=== PATIENT | male | born 1970 | race Caucasian/White ===

== ENCOUNTER 2021-10-28 12:06 | Emergency (ER) | payer SELFPAY ==
[~2021-10-28] VITALS: Ht 182.9 cm; Wt 94.3 kg
--- NOTE | 2021-10-28 12:15 | NUR ---
WALK IN C/O L AND R SIDED NUMBNESS, UNABLE TO TEXT, VISION CHANGES DURING PRESENTATION AT WORK.
--- NOTE | 2021-10-28 12:18 | NUR ---
SEEN BY DR BELTRAN
--- NOTE | 2021-10-28 12:21 | NUR ---
TAKEN TO CT
--- NOTE | 2021-10-28 12:22 | NUR ---
IV LINE IS ESTABLISHED, BLOOD SPECIMEN COLLECTED AND SENT TO THE LAB. THE LINE IS SALINE LOCKED.
[2021-10-28] MEDS ORDERED: CT SWABBABLE VALVE TRANS SET 1 EA INFUS.SET MC ONE (12:26)
[2021-10-28] MEDS ORDERED: IOHEXOL-350 100 ML VIAL IV ONE (12:26)
[2021-10-28] MEDS ORDERED: IV NS 0.9% 250 ML IV ONE (12:26)
[2021-10-28 12:28] LABS: BASOPHILS % (AUTO) 0.2 % (0.0-2.0); EOSINOPHILS % (AUTO) 4.7 % (0.0-6.0); HEMATOCRIT 44 % (39-51); HEMOGLOBIN 15.6 g/dL (13.5-17.5); LYMPHOCYTES # (AUTO) 1.6 K/uL (0.8-4.8); LYMPHOCYTES % (AUTO) 21.2 % (20.0-44.0); MEAN CORPUSCULAR HGB CONC 35 g/dl (31.0-36.0); MEAN CORPUSCULAR VOLUME 85 fL (80-96); MONOCYTES # (AUTO) 0.3 K/uL (0.1-1.30); MONOCYTES % (AUTO) 4.1 % (2.0-12.0); NEUTROPHILS # (AUTO) 5.2 K/uL (1.8-8.9); NEUTROPHILS % (AUTO) 69.8 % (43.0-81.0); PLATELET COUNT (AUTO) 243 K/uL (150-450); RED BLOOD CELL COUNT(AUTO) 5.21 MIL/uL (4.5-6.0); WHITE BLOOD COUNT (AUTO) 7.4 K/uL (4.3-11.0)
[2021-10-28] MEDS ORDERED: IV NS 0.9% 1,000 ML BAG IV ONE (12:30)
--- NOTE | 2021-10-28 12:31 | NUR ---
DR. JONES SPEAKING TO DR. BELTRAN.
--- NOTE | 2021-10-28 12:35 | NUR ---
PT RETURN FROM CT 1234.
--- NOTE | 2021-10-28 12:37 | NUR ---
TELE NEUROLOGIST SPEAKING TO THE PATIENT.
[2021-10-28 12:42] LABS: CALCIUM, SERUM 8.9 mg/dL (8.5-10.1); CARBON DIOXIDE 25 mmol/L (21-32); CHLORIDE 100 mmol/L (98-107); CREATININE 0.9 mg/dL (0.6-1.3); GLUCOSE 305 mg/dL (74-106); SODIUM SERUM 136 mmol/L (136-145); UREA NITROGEN, BLOOD 12 mg/dL (7-18)
--- NOTE | 2021-10-28 13:31 | NUR ---
PT AMBULATED TO BATHROOM, STEADY GAIT NOTED
--- NOTE | 2021-10-28 13:35 | NUR ---
URINE SAMPLE COLLECTED AND SENT TO LAB
[2021-10-28] MEDS ORDERED: AMLO10TA4 PO (14:04)
[2021-10-28 14:18] VITALS: BP 195/90
--- NOTE | 2021-10-28 14:18 | NUR ---
IV removed. Catheter intact and site benign. Pressure and 4x4 applied to site. No bleeding noted.
--- NOTE | 2021-10-28 14:18 | NUR ---
Patient discharged to home in stable condition. Written and verbal after care instructions given. Patient verbalizes understanding of instruction.
== END 2021-10-28 14:19 | disposition home or self-care (01) ==
LOC: ER 12:09
DX: G43.109 Migraine with aura, not intractable, without status migrainosus (principal); E11.65 Type 2 diabetes mellitus with hyperglycemia; R03.0 Elevated blood-pressure reading, without diagnosis of hypertension; R94.31 Abnormal electrocardiogram [ECG] [EKG]
CPT/HCPCS: 36415; 70450; 70496; 70498; 71045; 80048; 80307; 84484; 85025; 85730; 93005; 96360; 99285; J7050; Q9967

== ENCOUNTER 2021-11-03 08:44 | Emergency (ER) | payer SELFPAY ==
[~2021-11-03] VITALS: Ht 182.9 cm; Wt 95.3 kg
[~2021-11-03 08:44] MED LIST: AMLO10TA4 PO
--- NOTE | 2021-11-03 08:56 | NUR ---
TO ER BED 1. BIB HOME C/O HEADACHE SINCE SUNDAY, "NUMBNESS" TO MOUTH LASTING 10 MINUTES YESTERDAY. NOT IN RESPIRATORY DISTRESS. PT CONNECTED TO MONITOR. AWAITING MD LORD.
[2021-11-03] MEDS ORDERED: diphenhydrAMINE HCL 50 MG/ML VIAL ONE (09:12)
[2021-11-03] MEDS ORDERED: SUMATRIPTAN SUCCINATE 6 MG/0.5 ML VIAL SQ ONE ×2 (09:12→09:30)
[2021-11-03] MEDS ORDERED: KETOROLAC TROMETHAMINE INJ 30 MG/ML VIAL ONE (09:13)
--- NOTE | 2021-11-03 09:28 | NUR ---
IV LINE ESTABLISHED. RAC 20G.
[2021-11-03] MEDS ORDERED: IV NS 0.9% 1,000 ML BAG IV ONE (09:30)
[2021-11-03] MEDS ORDERED: KETOROLAC TROMETHAMINE INJ 30 MG/ML VIAL IV ONE (09:30)
[2021-11-03] MEDS ORDERED: diphenhydrAMINE HCL 50 MG/ML VIAL IV ONE (09:30)
[2021-11-03] MEDS ORDERED: LORAZEPAM INJ 2 MG/ML VIAL ONE (10:18)
[2021-11-03] MEDS ORDERED: hydrALAZINE HCL IV 20 MG VIAL ONE (10:19)
[2021-11-03] MEDS ORDERED: LORAZEPAM INJ 2 MG/ML VIAL IV ONE (10:30)
[2021-11-03] MEDS ORDERED: hydrALAZINE HCL IV 20 MG VIAL IV ONE (10:30)
[2021-11-03] MEDS ORDERED: HYDR12.55 PO (11:23)
[2021-11-03] MEDS ORDERED: SUMA50TA PO (11:23)
--- NOTE | 2021-11-03 11:50 | NUR ---
IV removed. Catheter intact and site benign. Pressure and 4x4 applied to site. No bleeding noted.
--- NOTE | 2021-11-03 12:01 | NUR ---
Patient discharged to home in stable condition. Written and verbal after care instructions given. Patient verbalizes understanding of instruction.
[2021-11-03 12:31] VITALS: BP 154/96
== END 2021-11-03 12:32 | disposition home or self-care (01) ==
LOC: ER 08:46
DX: I16.0 Hypertensive urgency (principal); G43.109 Migraine with aura, not intractable, without status migrainosus; E11.9 Type 2 diabetes mellitus without complications; Z79.899 Other long term (current) drug therapy
CPT/HCPCS: 82962; 93005; 96361; 96372; 96374; 96375; 99284; J0360; J1200; J1885; J2060; J3030; J7030

== ENCOUNTER 2022-09-07 06:19 | Emergency (ER) | payer SELFPAY ==
[~2022-09-07] VITALS: Ht 188 cm; Wt 97.5 kg
[~2022-09-07 06:19] MED LIST changes: +HYDR12.55 PO; +SUMA50TA PO
[2022-09-07 06:51] VITALS: BP 157/80
--- NOTE | 2022-09-07 06:56 | NUR ---
COVID SWAB COLLECTED AND SENT TO LAB
== END 2022-09-07 07:01 | disposition home or self-care (01) ==
LOC: ER 06:25
DX: B34.9 Viral infection, unspecified (principal); R43.9 Unspecified disturbances of smell and taste; Z20.822 Contact with and (suspected) exposure to COVID-19; I10 Essential (primary) hypertension; E11.9 Type 2 diabetes mellitus without complications
CPT/HCPCS: 99283; 87426; C9803

== ENCOUNTER 2022-11-18 14:10 | Emergency (ER) | payer BC ==
[~2022-11-18] VITALS: Ht 188 cm; Wt 93.0 kg
[2022-11-18 15:30] LABS: BASOPHILS % (AUTO) 0.5 % (0.0-2.0); HEMATOCRIT 40 % (39-51); HEMOGLOBIN 13.8 g/dL (13.5-17.5); LYMPHOCYTES # (AUTO) 1.3 K/uL (0.8-4.8); LYMPHOCYTES % (AUTO) 17.6 % (20.0-44.0); MEAN CORPUSCULAR HGB CONC 35 g/dl (31.0-36.0); MEAN CORPUSCULAR VOLUME 84 fL (80-96); MONOCYTES # (AUTO) 0.3 K/uL (0.1-1.30); MONOCYTES % (AUTO) 4.7 % (2.0-12.0); NEUTROPHILS # (AUTO) 5.6 K/uL (1.8-8.9); NEUTROPHILS % (AUTO) 76.2 % (43.0-81.0); PLATELET COUNT (AUTO) 261 K/uL (150-450); RED BLOOD CELL COUNT(AUTO) 4.75 MIL/uL (4.5-6.0); WHITE BLOOD COUNT (AUTO) 7.4 K/uL (4.3-11.0)
--- NOTE | 2022-11-18 15:30 | NUR ---
BIB self w c/c sharp, localized chest pain beginning about 30 minutes prior to arrival. No pain upon arrival to ED. A/O x 3
--- NOTE | 2022-11-18 16:00 | NUR ---
BLOOD SAMPLES OBTAINED
--- NOTE | 2022-11-18 16:00 | NUR ---
URINE SAMPLE OBTAINED
[2022-11-18 16:07] LABS: CALCIUM, SERUM 8.8 mg/dL (8.5-10.1); CREATININE 0.9 mg/dL (0.6-1.3); POTASSIUM 4.4 mmol/L (3.5-5.1)
[2022-11-18] MEDS ORDERED: IV NS 0.9% 1,000 ML IV ONE (16:30)
[2022-11-18] MEDS ORDERED: HYDROCHLOROTHIAZIDE 25 MG TABLET PO ONE (16:30)
[2022-11-18] MEDS ORDERED: HYDROCHLOROTHIAZIDE 25 MG TABLET ONE (16:48)
[2022-11-18] MEDS ORDERED: METF-440 PO (18:26)
[2022-11-18] MEDS ORDERED: HYDR12.55 PO (18:26)
[2022-11-18 19:34] LABS: ALBUMIN 3.8 g/dL (3.4-5.0); BILIRUBIN,TOTAL 0.5 mg/dL (0.2-1.0); TOTAL PROTEIN, SERUM 6.9 g/dL (6.4-8.2)
--- NOTE | 2022-11-18 20:10 | NUR ---
Patient discharged to home in stable condition. Written and verbal after care instructions given. Patient verbalizes understanding of instruction.IV removed. Catheter intact and site benign. Pressure and 4x4 applied to site. No bleeding noted.
[2022-11-18 20:11] VITALS: BP 153/86
== END 2022-11-18 20:11 | disposition home or self-care (01) ==
LOC: ER 14:16
DX: R07.9 Chest pain, unspecified (principal); R03.0 Elevated blood-pressure reading, without diagnosis of hypertension; E11.65 Type 2 diabetes mellitus with hyperglycemia; Z91.14 Patient's other noncompliance with medication regimen; I10 Essential (primary) hypertension; Z79.899 Other long term (current) drug therapy
CPT/HCPCS: 99285; 96360; 70450; 71045; 93005; 85025; 83735; 36415; 80053; 84484; 82962; J7030